=== PATIENT | male | born 1975 | race Caucasian/White ===

== ENCOUNTER 2021-04-11 18:23 | Emergency (ER) | payer BC ==
[~2021-04-11] VITALS: Ht 188 cm; Wt 102.3 kg
[2021-04-11 18:35] VITALS: TEMP 98.4
[2021-04-11 19:24] VITALS: BP 150/96; PULSE 106
== END 2021-04-11 19:27 | disposition home or self-care (01) ==
LOC: COL.ER 18:23
DX: S01.80XA Unspecified open wound of other part of head, initial encounter (principal); W22.8XXA Striking against or struck by other objects, initial encounter

== ENCOUNTER 2023-11-19 01:50 | Inpatient (IN) | payer BC ==
[~2023-11-19] VITALS: Ht 186.7 cm; Wt 103.5 kg
--- NOTE | 2023-11-20 03:10 | NUR ---
An Electronic Health Record (EHR) downtime even occurred during this patient's care. For legal medical record information generated during the downtime period, please reference the patient's legal medical record. Paper or scanned documentation has been incorporated into the legal medical record which is maintained in accordance with Health Information Management (HIM) and record retention policies.
[2023-11-20 04:00] VITALS: BP 111/75; PULSE 58; TEMP 98
[2023-11-20] MEDS ORDERED: Docusate Sodium 100 MG CAP PO PRN (04:00)
[2023-11-20] MEDS ORDERED: *Potassium Replacement Protocol MC SCH (04:00)
[2023-11-20] MEDS ORDERED: Ondansetron 4 MG/2 ML VIAL IV PRN (04:00)
[2023-11-20] MEDS ORDERED: oxyCODONE 5 MG TAB PO PRN (04:00)
[2023-11-20] MEDS ORDERED: Acetaminophen 325 MG TAB PO PRN (04:00)
[2023-11-20] MEDS ORDERED: Polyethylene Glycol 3350 17 GM PDS PO PRN (04:00)
[2023-11-20] MEDS ORDERED: Morphine 4 MG/ML VIAL IV PRN (04:00)
[2023-11-20] MEDS ORDERED: DILTIAZEM IV SCH (04:15)
[2023-11-20] MEDS ORDERED: Heparin 1,000 UNITS/0.2 ML Re-Bolus PRN IV (04:15)
[2023-11-20] MEDS ORDERED: NS IV SCH (04:15)
[2023-11-20] MEDS ORDERED: [UNRECOGNIZED DRUG - OTHER] IV SCH (04:15)
[2023-11-20] MEDS ORDERED: APRISO0.375 GM PO (04:57)
[2023-11-20] MEDS ORDERED: NEXIUM 40MG40 MG PO (04:58)
[2023-11-20] MEDS ORDERED: PREDNISONE20 MG PO (04:59)
[2023-11-20 07:05] VITALS: BP 115/72; PULSE 67; TEMP 98.5
--- NOTE | 2023-11-20 08:01 | NUR ---
Report received from [facility] resting in bed with no pain at this time. Cardizem and Hep running at this time. Will continue to monitor.
--- NOTE | 2023-11-20 08:43 | NUR ---
On 11/19/23 at 4:15 pm, criminal justice social worker met with patient and his , , Tin# [phone]. Patient lives outside of [facility]. PCP is Dr. Monteiro, Pharmacy is [facility] in [place] or [facility]. Insurance is [employer]. No issues with affording medications. No DME, reports to be independent with ADLS. No DPOA-HC, Patient may be interested in completing one. SW left a blank form and explained to contact her if he was wanting to complete it during the hospital stay. Patient reports he is independent with ADLS. Patient would like to return home at time of discharge. Discharge plan: Home [employer] workers' compensation hearings officer
[2023-11-20] MEDS ORDERED: BUDESONIDE 3 MG PO SCH (09:00)
[2023-11-20] MEDS ORDERED: Mesalamine DR 1.2 GM TAB PO SCH (09:00)
[2023-11-20] MEDS ORDERED: Apixaban 5 MG TABLET PO SCH (09:15)
--- NOTE | 2023-11-20 10:00 | NUR ---
Pt resting in bed with no pain at this time. Pt denies loop recorder placement, Dr. caraballo at bedside. Orders to salvador/tyrese paez and ANDREW horan. Pt with steady gait around room, will continue to monitor.
[2023-11-20] MEDS ORDERED: ELIQUIS 5MG PO (10:06)
[2023-11-20] MEDS ORDERED: TOPROL XL 25MG25 MG PO (10:07)
[2023-11-20] MEDS ORDERED: ASPIRIN 81M81 MG/TA2 PO (10:07)
[2023-11-20] MEDS ORDERED: MULTAQ400 MG PO (10:07)
[2023-11-20] MEDS ORDERED: [UNRECOGNIZED DRUG - OTHER] PO (10:12)
[2023-11-20 11:02] VITALS: BP 126/76; PULSE 62; TEMP 98.5
--- NOTE | 2023-11-20 11:20 | NUR ---
Discharge instructions provided to pt. Discussed follow up appointments, new medications, and symptoms of afib. No questions at this time. IV x2 and telle removed. Pt escorted out of building with all personal belongings.
[2023-11-20] MEDS ORDERED: Cephalexin 500 MG CAP PO SCH (21:00)
== END 2023-11-20 11:22 | disposition home or self-care (01) | DRG 309 ==
LOC: COL.ER 01:50 → MEDICAL 04:00
PROVIDERS: ADMIT Internal Medicine
DX: I48.91 Unspecified atrial fibrillation (principal); K50.90 Crohn's disease, unspecified, without complications; E87.6 Hypokalemia; D72.829 Elevated white blood cell count, unspecified; T38.0X5A Adverse effect of glucocorticoids and synthetic analogues, initial encounter; I34.0 Nonrheumatic mitral (valve) insufficiency; Z88.1 Allergy status to other antibiotic agents; Z88.0 Allergy status to penicillin
CPT/HCPCS: J1644